=== PATIENT | male | born 1955 | race Caucasian/White ===

== ENCOUNTER 2019-03-23 19:28 | Emergency (ER) | payer OTHER ==
[2019-03-23 21:13] VITALS: TEMP 98.1; BMI 23.5
[2019-03-23] MEDS ORDERED: chlordiazePOXIDE HCL 25 MG CAPSULE PO ONE (22:32)
--- NOTE | 2019-03-23 22:33 | PDOC ---
History of Present Illness - General Chief Complaint: Hematuria Stated Complaint: BLOOD IN URINE Time Seen by Provider: 03/23/19 22:12 - History of Present Illness Initial Comments: 03/23/19 22:40 63 y/o M hx of alcohol abuse sent from [facility] for evaluation of hematuria. Pt. has had one day of hematuria. He denies any fevers,chills, dysuria,discharge , foul smelling urine, abdominal pain or flank pain, chest pain, shortness of breath. He endorses agitation, "and needing something to take the edge off". His last alcohol use was yesterday where he had 18 shots of vodka. He denies any drug use (heroin, cocaine,pills of any kind). 03/23/19 22:43 Past History - Past Medical History Allergies/Adverse Reactions: Allergies Allergy/AdvReac Type Severity Reaction Status Date / Time No Known Allergies Allergy Verified 03/23/19 21:14 Home Medications: Ambulatory Orders Gabapentin 600 mg PO TID 03/23/19 Ibuprofen 600 mg PO BID 03/23/19 Cephalexin [Keflex] 500 mg PO TID #15 capsule 03/24/19 - Suicide/Smoking/Psychosocial Hx Smoking History: Never smoked Have you smoked in the past 12 months: No Number of Cigarettes Smoked Daily: 20 Information on smoking cessation initiated: No 'Breaking Loose' booklet given: 03/23/19 Hx Alcohol Use: No Drug/Substance Use Hx: No Review of Systems - Review of Systems Constitutional: Yes: Chills. No: Fever HEENTM: No: Eye Pain, Blurred Vision Respiratory: No: Cough, Shortness of Breath Cardiac (ROS): No: Chest Pain, Chest Tightness ABD/GI: No: Abdominal Distended, Blood Streaked Bowels : No: Burning, Dysuria Musculoskeletal: No: Back Pain Neurological: Yes: Tremors. No: Numbness *Physical Exam - Vital Signs Last Vital Signs Temp Pulse Resp BP Pulse Ox 98.1 F 105 H 20 116/84 98 03/23/19 19:30 03/23/19 19:30 03/23/19 19:30 03/23/19 19:30 03/23/19 19:30 - Physical Exam General Appearance: Yes: Nourished, Disheveled HEENT: positive: EOMI, Normal Voice Neck: positive: Trachea midline, Supple Respiratory/Chest: positive: Wheezing. negative: Chest Tender, Respiratory Distress, Accessory Muscle Use, Labored Respiration, Crackles, Rales Cardiovascular: positive: Regular Rhythm, S1, S2. negative: Edema, JVD, Murmur Gastrointestinal/Abdominal: positive: Normal Bowel Sounds, Soft. negative: Distended, Guarding, Tenderness, Mass Musculoskeletal: positive: Normal Inspection. negative: CVA Tenderness Extremity: positive: Normal Inspection, Normal Range of Motion. negative: Calf Tenderness Integumentary: positive: Normal Color, Dry, Warm Neurologic: positive: Alert, Normal Response ED Treatment Course - LABORATORY CBC & Chemistry Diagram: 03/24/19 00:17 03/24/19 00:17 Medical Decision Making - Medical Decision Making 03/23/19 22:47 63 y/o M hx of alcohol abuse sent from [facility] for evaluation of hematuria. Labs/Imaging/Meds UA, urine culture, cbc,cmp Meds: Librium 50mg PO for agitation 03/24/19 03:50 Vitals at time of discharge BP: 120/70 HR: 98 03/24/19 03:53 EKG: ventricular paced rhythm *DC/Admit/Observation/Transfer Diagnosis at time of Disposition: Hematuria Qualifiers: Hematuria type: gross Qualified Code(s): R31.0 - Gross hematuria - Discharge Dispostion Condition at time of disposition: Fair - Prescriptions Prescriptions: Cephalexin [Keflex] 500 mg PO TID #15 capsule - Referrals Referrals: Lamont Ridley MD., MD [Staff Physician] - [facility] [place] [Provider Group] - Patient Instructions Printed Discharge Instructions: DI for Hematuria Additional Instructions: You were seen in the ED for blood in your urine. You were given antibiotics and discharged to [facility] with an antibiotic prescription. Take medication as instructed and directed. You had a large amount of blood in your urine, it is important to note that this is one of the signs seen in [facility]: YOUR CARE IS NOT COMPLETE UNTIL YOU FOLLOW UP WITH A UROLOGIST AND A PRIMARY CARE PROVIDER. INFORMATION FOR THESE PROVIDERS ARE INCLUDED IN YOUR DISCHARGE PAPER WORK. ED RETURN: return to the ER if you develop fevers, chills, burning with urination, difficulty urinating or increasing pain especially in your back that is not resolved with over the counter medications like tylenol. - Post Discharge Activity
[2019-03-23] MEDS ORDERED: chlordiazePOXIDE HCL 25 MG CAPSULE ONE (23:59)
[2019-03-24 00:44] LABS: BASO % 0.4 % (0-2.0); EOS % 1.2 % (0-4.5); HEMATOCRIT 43.1 % (35.4-49); HEMOGLOBIN 14.9 GM/dL (11.7-16.9); LYMPH % 33.1 % (8-40); MCH 32.7 pg (25.7-33.7); MCHC 34.5 g/dl (32.0-35.9); MEAN CELL VOLUME 94.8 fl (80-96); MEAN PLT VOLUME 7.7 fl (7.5-11.1); MONO % 14.9 % (3.8-10.2); NEUT % 50.4 % (42.8-82.8); PLATELET COUNT 167 K/MM3 (134-434); RBC 4.55 M/mm3 (4.00-5.60); RDW 15.1 % (11.9-15.9); WHITE BLOOD COUNT 7.5 K/mm3 (4.0-10.0)
[2019-03-24 01:12] LABS: ALBUMIN 3.9 g/dl (3.4-5.0); BILIRUBIN,TOTAL 1.3 mg/dL (0.2-1); BLOOD UREA NITROGEN 25.5 mg/dL (7-18); CREATININE 0.6 mg/dL (0.55-1.3); POTASSIUM 3.4 mmol/L (3.5-5.1); TOT PROT 7.7 g/dl (6.4-8.2)
[2019-03-24 01:25] LABS: EPI CELLS 0.3 /HPF (0-5/HPF); HYALINE CASTS 3 /lpf (0-8); URINE APPEARANCE TURBID; URINE BILIRUBIN 2+ (NEGATIVE); URINE COLOR RED; URINE GLUCOSE (UA) NEGATIVE (NEGATIVE); URINE KETONE NEGATIVE (NEGATIVE); URINE LEUK ESTERASE 3+ (NEGATIVE); URINE NITRITE POSITIVE (NEGATIVE); URINE PROTEIN 2+ (NEGATIVE); URINE RBC 141 /hpf (0-4); URINE UROBILINOGEN 0.2 mg/dL (0.2-1.0); URINE WBC 0 /hpf (0-5)
[2019-03-24 01:42] LABS: URINE BACTERIA FEW /hpf (NEGATIVE)
[2019-03-24] MEDS ORDERED: CEPHALEXIN MONOHYDRATE 500 MG CAPSULE (UD) PO ONE (02:18)
--- NOTE | 2019-03-24 02:24 | PDOC ---
Documentation entered by Shyanne hCoudhary SCRIBE, acting as scribe for Nancy Deng DO. Nancy Deng DO: This documentation has been prepared by the Kenrick nash Mackenzie, SCRIBE, under my direction and personally reviewed by me in its entirety. I confirm that the documentation accurately reflects all work, treatment, procedures, and medical decision making performed by me. Attending Attestation - Resident Resident Name: Lillie Escamilla - ED Attending Attestation I have performed the following: I have examined & evaluated the patient, The case was reviewed & discussed with the resident, I agree w/resident's findings & plan - HPI HPI: Patient is a 63 year old male with a significant PMH of EtOH abuse sent over from [facility] because his urine sample had blood in it. 03/23/19 23:21 - Physicial Exam PE: GENERAL: Awake, in no acute distress HEAD: No signs of trauma EYES: ENT:clear without exudates. Moist mucosa NECK: Normal ROM, LUNGS:. Normal work of breathing. HEART: Regular rate and rhythm, ABDOMEN: Soft, nondistended CHEST WALL: BACK: No midline tenderness. EXTREMITIES:. No erythema, or tenderness NEUROLOGICAL: Alert, SKIN: Warm, Dry 03/23/19 23:22 - Medical Decision Making 03/24/19 02:22 63-year-old male with hematuria found incidentally on urinalysis while in rehabilitation Keflex given 5 days due to no treated positive sample Patient given Librium 50 mg by mouth while in the emergency department was Keflex 500 mg Patient will be discharged back to rehabilitation and has been strongly urged to follow-up with urology for further evaluation
[2019-03-24] MEDS ORDERED: CEPHALEXIN MONOHYDRATE 500 MG CAPSULE (UD) ONE (03:14)
[2019-03-24 07:09] VITALS: BP 121/86; PULSE 95
== END 2019-03-24 07:00 ==
LOC: JER 19:28
DX: R31.0 Gross hematuria (principal)
CPT/HCPCS: 36415; 80053; 81003; 85025; 86850; 86900; 86901; 87086; 99283-25

== ENCOUNTER 2019-03-24 08:20 | Inpatient (IN) | payer OTHER ==
[2019-03-24 08:49] VITALS: BMI 26.6
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
[2019-03-24] MEDS ORDERED: METHOCARBAMOL 500 MG TABLET PO PRN (09:00)
[2019-03-24] MEDS ORDERED: chlordiazePOXIDE HCL 25 MG CAPSULE PO PRN (09:00)
[2019-03-24] MEDS ORDERED: MELATONIN 5 MG TABLETS PO PRN (09:00)
[2019-03-24] MEDS ORDERED: ACETAMINOPHEN 325 MG TABLET (FP) PO PRN ×2 (09:00)
[2019-03-24] MEDS ORDERED: MENTHOL/PHENOL 1 EACH UD MM PRN (09:00)
[2019-03-24] MEDS ORDERED: BISMUTH SUBSALICYLATE 262 MG/15 ML BTL PO PRN (09:00)
[2019-03-24] MEDS ORDERED: MAGNESIUM HYDROX 2400MG/30ML ORAL SUSPENSION 30 ML CUP PO PRN (09:00)
[2019-03-24] MEDS ORDERED: IBUPROFEN 400 MG TABLET (FP) PO PRN (09:00)
[2019-03-24] MEDS ORDERED: MAGNESIUM CITRATE 300 ML BOTTLE PO PRN (09:00)
[2019-03-24] MEDS ORDERED: MAG HYDROX/AL HYDROX/SIMETH 30 ML UNIT-DOSE CUP PO PRN (09:00)
[2019-03-24] MEDS: PRENATAL VITAMINS W/ FOLIC ACID TABLET (FP) PO SCH (10:31)
[2019-03-24] MEDS: chlordiazePOXIDE HCL 25 MG CAPSULE PO SCH ×3 (10:31→22:53)
--- NOTE | 2019-03-24 13:03 | EKG ---
Test Reason : Blood Pressure : / mmHG Vent. Rate : 098 BPM Atrial Rate : 098 BPM P-R Int : 144 ms QRS Dur : 090 ms QT Int : 372 ms P-R-T Axes : 059 047 057 degrees QTc Int : 474 ms NORMAL SINUS RHYTHM WITH SINUS ARRHYTHMIA NONSPECIFIC T WAVE ABNORMALITY PROLONGED QT ABNORMAL ECG NO PREVIOUS ECGS AVAILABLE Confirmed by KUSH ROBERSON MD ([id number]) on 03/24/2019 1:03:48 PM Referred By: Confirmed By:KUSH ROBERSON MD
[2019-03-24] MEDS: GABAPENTIN 300 MG CAPSULE (FP) PO SCH ×2 (15:06→22:53)
[2019-03-24] MEDS: CEPHALEXIN MONOHYDRATE 500 MG CAPSULE (UD) PO SCH ×2 (15:06→22:53)
--- NOTE | 2019-03-24 16:43 | PN ---
S CIWA - CIWA Score Nausea/Vomitin-Mild Nausea/No Vomiting Muscle Tremors: 3 Anxiety: 2 Agitation: 3 Paroxysmal Sweats: 2 Orientation: 0-Oriented Tacttile Disturbances: 0-None Auditory Disturbances: 0-None Visual Disturbances: 0-None Headache: 0-None Present CIWA-Ar Total Score: 11 BHS Progress Note (SOAP) Subjective: 63 years old male return from ER treated with hematuria by keflex reporting feeling better today less tremor ambulating from bed to bathroom independently Objective: 03/24/19 16:42 Vital Signs Temperature 99.5 F 03/24/19 13:45 Pulse Rate 111 H 03/24/19 13:45 Respiratory Rate 20 03/24/19 13:45 Blood Pressure 112/75 03/24/19 13:45 O2 Sat by Pulse Oximetry (%) 03/24/19 16:43 lab see 03/24/19 ER report uti treated with keflex Assessment: alcohol withdrawal sx alert oriented x 4 encourage change position slowly Plan: continue librium detox regimen continue keflex for uti
[2019-03-24] MEDS: THIAMINE HCL 100 MG TABLET (FP) PO SCH (22:53)
[2019-03-25] MEDS: CEPHALEXIN MONOHYDRATE 500 MG CAPSULE (UD) PO SCH ×3 (05:29→22:20)
[2019-03-25] MEDS: chlordiazePOXIDE HCL 25 MG CAPSULE PO SCH ×2 (05:29→10:16)
[2019-03-25] MEDS: GABAPENTIN 300 MG CAPSULE (FP) PO SCH ×3 (05:29→22:20)
[2019-03-25] MEDS: PRENATAL VITAMINS W/ FOLIC ACID TABLET (FP) PO SCH (10:15)
[2019-03-25] MEDS: hydrOXYzine HCL 25 MG TABLET (FP) PO PRN ×2 (10:16→22:22)
[2019-03-25 10:57] LABS: HEMATOCRIT 43.6 % (35.4-49); MCH 32.9 pg (25.7-33.7); MCHC 34.5 g/dl (32.0-35.9); MEAN CELL VOLUME 95.4 fl (80-96); MEAN PLT VOLUME 7.8 fl (7.5-11.1); PLATELET COUNT 165 K/MM3 (134-434); RBC 4.57 M/mm3 (4.00-5.60); RDW 15.3 % (11.9-15.9)
[2019-03-25 11:12] LABS: ALBUMIN 3.7 g/dl (3.4-5.0); BILIRUBIN,TOTAL 1.4 mg/dL (0.2-1); CREATININE 0.7 mg/dL (0.55-1.3); TOT PROT 7.6 g/dl (6.4-8.2)
[2019-03-25 11:16] LABS: POTASSIUM 2.9 mmol/L (3.5-5.1)
[2019-03-25] MEDS: NICOTINE 21 MG/24 HOURS TOPICAL PATCH TD SCH (11:21)
[2019-03-25] MEDS ORDERED: POTASSIUM CHLORIDE TABS 20 MEQ TABLET.ER (FP) PO ONE (11:33)
[2019-03-25] MEDS ORDERED: LORazepam 1 MG TABLET PO PRN (11:54)
--- NOTE | 2019-03-25 11:56 | PN ---
[facility] CIWA - CIWA Score Nausea/Vomitin-Mild Nausea/No Vomiting Muscle Tremors: 4-Moderate,w/Arms Extend Anxiety: 3 Agitation: 1-Slight > Activity Paroxysmal Sweats: 2 Orientation: 2-Disoriented Date<2 days Tacttile Disturbances: 1-Very Mild Itch/Numbness Auditory Disturbances: 0-None Visual Disturbances: 0-None Headache: 0-None Present CIWA-Ar Total Score: 14 S Progress Note (SOAP) Subjective: Tremors, Anxious, Sweating. Objective: PATIENT A & O X 2 (UNCERTAIN ABOUT CURRENT DAY / DATE). PATIENT OBSERVED AMBULATING ON UNIT WITH ASSISTANCE OF A WALKER. IN NO ACUTE DISTRESS. 03/25/19 11:57 Vital Signs Temperature 98.3 F 03/25/19 09:13 Pulse Rate 137 H 03/25/19 09:13 Respiratory Rate 20 03/25/19 09:13 Blood Pressure 106/69 03/25/19 09:13 O2 Sat by Pulse Oximetry (%) Laboratory Tests 03/25/19 03/25/19 03/25/19 07:30 07:30 07:30 WBC 6.0 RBC 4.57 Hgb 15.0 Hct 43.6 MCV 95.4 MCH 32.9 MCHC 34.5 RDW 15.3 Plt Count 165 MPV 7.8 Sodium 140 Potassium 2.9 L* Chloride 98 Carbon Dioxide 33 H Anion Gap 9 BUN 19.0 H Creatinine 0.7 Est GFR (CKD-EPI)AfAm 115.59 Est GFR (CKD-EPI)NonAf 99.73 Random Glucose 91 Calcium 9.0 Total Bilirubin 1.4 H AST 176 H ALT 125 H Alkaline Phosphatase 80 Total Protein 7.6 Albumin 3.7 RPR Titer Nonreactive LABS NOTED. Assessment: 03/25/19 11:58 WITHDRAWAL SYMPTOMS. HYPOKALEMIA. ELEVATED AST LEVEL. ELEVATED ALT LEVEL. 03/25/19 11:58 Plan: CONTINUE DETOX. INCREASE DAILY PO WATER INTAKE. K-DUR, 20 MEQ PO BID FOR LOW POTASSIUM LEVEL NOTED ON DETOX ADMISSION LABORATORY ASSESSMENT. RE-CHECK POTASSIUM LEVEL ON 03/27/2019 FOR EFFECT. ALT AND AST LEVELS CHECKED YESTERDAY WHILE PATIENT WAS SEEN AT [facility] ER. AST AND ALT LEVELS CHECKED AGAIN EARLIER THIS AM; BOTH LEVELS INCREASED SINCE YESTERDAY. WILL CHANGE PATIENT FROM LIBRIUM DETOX MEDICATION REGIMEN TO ATIVAN DETOX MEDICATION REGIMEN. WILL CHECK HEPATIC FUNCTION PANEL ON 03/25/2019 TO SEE IF ANY REDUCTION IN AST AND ALT LEVELS.
[2019-03-25] MEDS: ONDANSETRON *ODT* 4 MG TABLET SL PRN (13:33)
[2019-03-25 15:36] LABS: URINE APPEARANCE TURBID; URINE BILIRUBIN 1+ (NEGATIVE); URINE COLOR RED; URINE GLUCOSE (UA) NEGATIVE (NEGATIVE); URINE KETONE NEGATIVE (NEGATIVE); URINE LEUK ESTERASE 3+ (NEGATIVE); URINE NITRITE POSITIVE (NEGATIVE); URINE PROTEIN 3+ (NEGATIVE); URINE UROBILINOGEN 0.2 mg/dL (0.2-1.0)
[2019-03-25] MEDS: POTASSIUM CHLORIDE TABS 20 MEQ TABLET.ER (FP) PO SCH (17:54)
[2019-03-25] MEDS: LORazepam 2 MG TABLET PO SCH ×2 (17:54→22:20)
[2019-03-25] MEDS: PROCHLORPERAZINE MALEATE 5 MG TABLET PO PRN (17:55)
[2019-03-25] MEDS: THIAMINE HCL 100 MG TABLET (FP) PO SCH (22:20)
[2019-03-26] MEDS ORDERED: chlordiazePOXIDE HCL 25 MG CAPSULE PO SCH (05:00)
[2019-03-26] MEDS: LORazepam 2 MG TABLET PO SCH ×4 (06:48→22:20)
[2019-03-26] MEDS: GABAPENTIN 300 MG CAPSULE (FP) PO SCH ×3 (06:48→21:47)
[2019-03-26] MEDS: CEPHALEXIN MONOHYDRATE 500 MG CAPSULE (UD) PO SCH ×3 (06:48→21:47)
[2019-03-26] MEDS: ONDANSETRON *ODT* 4 MG TABLET SL PRN ×2 (08:05→17:34)
[2019-03-26] MEDS: POTASSIUM CHLORIDE TABS 20 MEQ TABLET.ER (FP) PO SCH ×2 (10:25→17:34)
[2019-03-26] MEDS: PRENATAL VITAMINS W/ FOLIC ACID TABLET (FP) PO SCH (10:25)
[2019-03-26] MEDS: NICOTINE 21 MG/24 HOURS TOPICAL PATCH TD SCH (10:26)
[2019-03-26] MEDS ORDERED: LORazepam 0.5 MG TABLET PO PRN (11:55)
[2019-03-26] MEDS: PROCHLORPERAZINE MALEATE 5 MG TABLET PO PRN (12:53)
--- NOTE | 2019-03-26 13:17 | PN ---
S CIWA - CIWA Score Nausea/Vomitin Muscle Tremors: 3 Anxiety: 4-Mod. Anxious/Guarded Agitation: 2 Paroxysmal Sweats: No Perspiration Orientation: 0-Oriented Tacttile Disturbances: 0-None Auditory Disturbances: 0-None Visual Disturbances: 0-None Headache: 0-None Present CIWA-Ar Total Score: 14 BHS Progress Note (SOAP) Subjective: Anxious, Tremors, Vomiting. Objective: PATIENT A & O X 3, OBSERVED AMBULATING ON UNIT WITH ASSISTANCE OF A WALKER. IN NO ACUTE DISTRESS. 03/26/19 13:15 Vital Signs Temperature 97.3 F L 03/26/19 09:49 Pulse Rate 103 H 03/26/19 09:49 Respiratory Rate 18 03/26/19 09:49 Blood Pressure 91/63 03/26/19 09:49 O2 Sat by Pulse Oximetry (%) Laboratory Tests 03/25/19 03/25/19 03/25/19 07:30 07:30 07:30 WBC 6.0 RBC 4.57 Hgb 15.0 Hct 43.6 MCV 95.4 MCH 32.9 MCHC 34.5 RDW 15.3 Plt Count 165 MPV 7.8 Sodium 140 Potassium 2.9 L* Chloride 98 Carbon Dioxide 33 H Anion Gap 9 BUN 19.0 H Creatinine 0.7 Est GFR (CKD-EPI)AfAm 115.59 Est GFR (CKD-EPI)NonAf 99.73 Random Glucose 91 Calcium 9.0 Total Bilirubin 1.4 H AST 176 H ALT 125 H Alkaline Phosphatase 80 Total Protein 7.6 Albumin 3.7 Urine Color Urine Appearance Urine pH Ur Specific [place] Urine Protein Urine Glucose (UA) Urine Ketones Urine Blood Urine Nitrite Urine Bilirubin Urine Urobilinogen Ur Leukocyte Esterase RPR Titer Nonreactive 03/25/19 07:30 WBC RBC Hgb Hct MCV MCH MCHC RDW Plt Count MPV Sodium Potassium Chloride Carbon Dioxide Anion Gap BUN Creatinine Est GFR (CKD-EPI)AfAm Est GFR (CKD-EPI)NonAf Random Glucose Calcium Total Bilirubin AST ALT Alkaline Phosphatase Total Protein Albumin Urine Color Red Urine Appearance Turbid Urine pH 7.0 Ur Specific [place] 1.004 L Urine Protein 3+ H Urine Glucose (UA) Negative Urine Ketones Negative Urine Blood 3+ H Urine Nitrite Positive H Urine Bilirubin 1+ H Urine Urobilinogen 0.2 Ur Leukocyte Esterase 3+ H RPR Titer LABS NOTED. RESULTS OF UA NOTED. PATIENT CURRENTLY BEING TREATED FOR UTI, PO KEFLEX STARTED WHILE PATIENT WAS SEEN AT [facility] JUST PRIOR TO ADMISSION TO DETOX. HEMATURIA NOTED ON DETOX ADMISSION UA. PATIENT WAS EVALUATED FOR THAT AT [facility], WELL. 03/26/19 13:16 Assessment: 03/26/19 13:17 WITHDRAWAL SYMPTOMS. ELEVATED AST AND ALT LEVELS. HYPERBILIRUBINEMIA. HYPOKALEMIA. URINARY TRACT INFECTION. HEMATURIA. 03/26/19 13:18 Plan: CONTINUE DETOX. INCREASE DAILY PO WATER INTAKE. REPEAT UA TO SEE IF ANY CHANGE FROM ADMISSION UA ABNORMALITIES. HEPATIC FUNCTIONAL ORDERED FOR TOMORROW AM TO SEE IF ANY CHANGE IN AST, ALT AND IN TOTAL BILIRUBIN LEVELS FROM DETOX ADMISSION. CONTINUE K-DUR PO. REPEAT POTASSIUM LEVEL ORDERED FOR TOMORROW AM TO SEE IF ANY CHANGE IN POTASSIUM LEVEL SINCE POTASSIUM LEVEL AT TIME OF DETOX ADMISSION. PRN TIGAN IM ORDERED FOR NAUSEA / VOMITING (PATIENT REQUESTS).
[2019-03-26] MEDS: TRIMETHOBENZAMIDE HCL 200MG/2ML INJ IM PRN (21:43)
[2019-03-26] MEDS: THIAMINE HCL 100 MG TABLET (FP) PO SCH (21:47)
[2019-03-27] MEDS ORDERED: chlordiazePOXIDE HCL 10 MG CAPSULE PO PRN
[2019-03-27] MEDS ORDERED: chlordiazePOXIDE HCL 10 MG CAPSULE PO SCH (05:00)
[2019-03-27] MEDS: LORazepam 1 MG TABLET PO SCH ×4 (06:45→22:42)
[2019-03-27] MEDS: GABAPENTIN 300 MG CAPSULE (FP) PO SCH ×3 (06:46→22:42)
[2019-03-27] MEDS: CEPHALEXIN MONOHYDRATE 500 MG CAPSULE (UD) PO SCH ×3 (06:46→22:42)
[2019-03-27] MEDS: TRIMETHOBENZAMIDE HCL 200MG/2ML INJ IM PRN (06:48)
[2019-03-27 10:22] LABS: ALBUMIN 3.4 g/dl (3.4-5.0); BILIRUBIN,DIRECT 0.4 mg/dL (0.0-0.2); BILIRUBIN,TOTAL 0.9 mg/dL (0.2-1); POTASSIUM 3.9 mmol/L (3.5-5.1)
--- NOTE | 2019-03-27 10:36 | PN ---
[facility] CIWA - CIWA Score Nausea/Vomitin Muscle Tremors: 1-None Visible, but [place] Anxiety: 2 Agitation: 2 Paroxysmal Sweats: 2 Orientation: 0-Oriented Tacttile Disturbances: 0-None Auditory Disturbances: 0-None Visual Disturbances: 0-None Headache: 0-None Present CIWA-Ar Total Score: 9 S Progress Note (SOAP) Subjective: 63 years old male admitted on 03/24/19 for acute alcohol withdrawal sx management doing well with ativan detox regimen had regular bowel movement "yesterday" ambulating with walker steady gait denies dizziness report vomited x 1 after took a bite of bagel tigan 200 mg IM x 1 around 7 am bp within previous range no periorbital edema denies headache no ankle edema no shortness of breath Objective: 03/27/19 10:38 Vital Signs Temperature 99.1 F 03/27/19 09:34 Pulse Rate 102 H 03/27/19 09:34 Respiratory Rate 19 03/27/19 09:34 Blood Pressure 97/68 03/27/19 09:34 O2 Sat by Pulse Oximetry (%) Laboratory Last Values WBC 6.0 K/mm3 (4.0-10.0) 03/25/19 07:30 RBC 4.57 M/mm3 (4.00-5.60) 03/25/19 07:30 Hgb 15.0 GM/dL (11.7-16.9) 03/25/19 07:30 Hct 43.6 % (35.4-49) 03/25/19 07:30 MCV 95.4 fl (80-96) 03/25/19 07:30 MCH 32.9 pg (25.7-33.7) 03/25/19 07:30 MCHC 34.5 g/dl (32.0-35.9) 03/25/19 07:30 RDW 15.3 % (11.9-15.9) 03/25/19 07:30 Plt Count 165 K/MM3 (134-434) 03/25/19 07:30 MPV 7.8 fl (7.5-11.1) 03/25/19 07:30 Sodium 140 mmol/L (136-145) 03/25/19 07:30 Potassium 3.9 mmol/L (3.5-5.1) 03/27/19 08:00 Chloride 98 mmol/L (98-107) 03/25/19 07:30 Carbon Dioxide 33 mmol/L (21-32) H 03/25/19 07:30 Anion Gap 9 MMOL/L (8-16) 03/25/19 07:30 BUN 19.0 mg/dL (7-18) H 03/25/19 07:30 Creatinine 0.7 mg/dL (0.55-1.3) 03/25/19 07:30 Est GFR (CKD-EPI)AfAm 115.59 03/25/19 07:30 Est GFR (CKD-EPI)NonAf 99.73 03/25/19 07:30 Random Glucose 91 mg/dL (74-106) 03/25/19 07:30 Calcium 9.0 mg/dL (8.5-10.1) 03/25/19 07:30 Total Bilirubin 0.9 mg/dL (0.2-1) 03/27/19 08:00 Direct Bilirubin 0.4 mg/dL (0.0-0.2) H 03/27/19 08:00 AST 152 U/L (15-37) H 03/27/19 08:00 ALT 138 U/L (13-61) H 03/27/19 08:00 Alkaline Phosphatase 71 U/L (45-117) 03/27/19 08:00 Total Protein 7.0 g/dl (6.4-8.2) 03/27/19 08:00 Albumin 3.4 g/dl (3.4-5.0) 03/27/19 08:00 Urine Color Red 03/25/19 07:30 Urine Appearance Turbid 03/25/19 07:30 Urine pH 7.0 (5.0-8.0) 03/25/19 07:30 Ur Specific [place] 1.004 (1.010-1.035) L 03/25/19 07:30 Urine Protein 3+ (NEGATIVE) H 03/25/19 07:30 Urine Glucose (UA) Negative (NEGATIVE) 03/25/19 07:30 Urine Ketones Negative (NEGATIVE) 03/25/19 07:30 Urine Blood 3+ (NEGATIVE) H 03/25/19 07:30 Urine Nitrite Positive (NEGATIVE) H 03/25/19 07:30 Urine Bilirubin 1+ (NEGATIVE) H 03/25/19 07:30 Urine Urobilinogen 0.2 mg/dL (0.2-1.0) 03/25/19 07:30 Ur Leukocyte Esterase 3+ (NEGATIVE) H 03/25/19 07:30 RPR Titer Nonreactive (NONREACTIVE) 03/25/19 07:30 lab noted hematuria uti 03/27/19 10:39 continue cepalexin discontinue K+ supplement 03/27/19 10:40 Assessment: 03/27/19 10:40 alcohol withdrawal sx Plan: continue ativan detox
[2019-03-27] MEDS: PRENATAL VITAMINS W/ FOLIC ACID TABLET (FP) PO SCH (10:40)
[2019-03-27] MEDS: NICOTINE 21 MG/24 HOURS TOPICAL PATCH TD SCH (10:41)
[2019-03-27] MEDS: POTASSIUM CHLORIDE TABS 20 MEQ TABLET.ER (FP) PO SCH (10:42)
[2019-03-27] MEDS: THIAMINE HCL 100 MG TABLET (FP) PO SCH (22:42)
[2019-03-28] MEDS ORDERED: chlordiazePOXIDE HCL 10 MG CAPSULE PO SCH (05:00)
[2019-03-28] MEDS: CEPHALEXIN MONOHYDRATE 500 MG CAPSULE (UD) PO SCH ×3 (06:05→22:49)
[2019-03-28] MEDS: GABAPENTIN 300 MG CAPSULE (FP) PO SCH ×3 (06:05→22:49)
[2019-03-28] MEDS: LORazepam 0.5 MG TABLET PO SCH ×4 (06:06→22:55)
[2019-03-28] MEDS: ONDANSETRON *ODT* 4 MG TABLET SL PRN (10:17)
[2019-03-28] MEDS: NICOTINE 21 MG/24 HOURS TOPICAL PATCH TD SCH (10:19)
[2019-03-28] MEDS: PRENATAL VITAMINS W/ FOLIC ACID TABLET (FP) PO SCH (10:19)
[2019-03-28 12:26] LABS: EPI CELLS 6.2 /HPF (0-5/HPF); HYALINE CASTS 3 /lpf (0-8); URINE APPEARANCE TURBID; URINE BACTERIA 0.8 /hpf (NEGATIVE); URINE BILIRUBIN 1+ (NEGATIVE); URINE COLOR DK YELLOW; URINE GLUCOSE (UA) NEGATIVE (NEGATIVE); URINE KETONE TRACE (NEGATIVE); URINE LEUK ESTERASE 1+ (NEGATIVE); URINE NITRITE NEGATIVE (NEGATIVE); URINE PROTEIN 2+ (NEGATIVE); URINE RBC 2468 /hpf (0-4); URINE WBC 6 /hpf (0-5)
--- NOTE | 2019-03-28 15:05 | PN ---
S CIWA - CIWA Score Nausea/Vomitin-No Nausea/No Vomiting Muscle Tremors: 2 Anxiety: 3 Agitation: 0-Normal Activity Paroxysmal Sweats: No Perspiration Orientation: 2-Disoriented Date<2 days Tacttile Disturbances: 1-Very Mild Itch/Numbness Auditory Disturbances: 0-None Visual Disturbances: 0-None Headache: 0-None Present CIWA-Ar Total Score: 8 BHS Progress Note (SOAP) Subjective: Anxious, Tremors. Objective: PATIENT A & O X 2 (UNCERTAIN ABOUT CURRENT DAY / DATE). IN NO ACUTE DISTRESS. 03/28/19 14:58 Vital Signs Temperature 97.4 F L 03/28/19 13:28 Pulse Rate 96 H 03/28/19 13:28 Respiratory Rate 16 03/28/19 13:28 Blood Pressure 102/70 03/28/19 13:28 O2 Sat by Pulse Oximetry (%) Laboratory Tests 03/25/19 03/25/19 03/25/19 07:30 07:30 07:30 WBC 6.0 RBC 4.57 Hgb 15.0 Hct 43.6 MCV 95.4 MCH 32.9 MCHC 34.5 RDW 15.3 Plt Count 165 MPV 7.8 Sodium 140 Potassium 2.9 L* Chloride 98 Carbon Dioxide 33 H Anion Gap 9 BUN 19.0 H Creatinine 0.7 Est GFR (CKD-EPI)AfAm 115.59 Est GFR (CKD-EPI)NonAf 99.73 Random Glucose 91 Calcium 9.0 Total Bilirubin 1.4 H Direct Bilirubin AST 176 H ALT 125 H Alkaline Phosphatase 80 Total Protein 7.6 Albumin 3.7 Urine Color Urine Appearance Urine pH Ur Specific [place] Urine Protein Urine Glucose (UA) Urine Ketones Urine Blood Urine Nitrite Urine Bilirubin Urine Urobilinogen Ur Leukocyte Esterase Urine WBC (Auto) Urine RBC (Auto) Urine Casts (Auto) U Epithel Cells (Auto) Urine Bacteria (Auto) RPR Titer Nonreactive 03/25/19 03/27/19 03/27/19 07:30 08:00 08:00 WBC RBC Hgb Hct MCV MCH MCHC RDW Plt Count MPV Sodium Potassium 3.9 Chloride Carbon Dioxide Anion Gap BUN Creatinine Est GFR (CKD-EPI)AfAm Est GFR (CKD-EPI)NonAf Random Glucose Calcium Total Bilirubin 0.9 Cancelled Direct Bilirubin 0.4 H Cancelled AST 152 H Cancelled ALT 138 H Cancelled Alkaline Phosphatase 71 Cancelled Total Protein 7.0 Cancelled Albumin 3.4 Cancelled Urine Color Red Urine Appearance Turbid Urine pH 7.0 Ur Specific [place] 1.004 L Urine Protein 3+ H Urine Glucose (UA) Negative Urine Ketones Negative Urine Blood 3+ H Urine Nitrite Positive H Urine Bilirubin 1+ H Urine Urobilinogen 0.2 Ur Leukocyte Esterase 3+ H Urine WBC (Auto) Urine RBC (Auto) Urine Casts (Auto) U Epithel Cells (Auto) Urine Bacteria (Auto) RPR Titer 03/28/19 08:20 WBC RBC Hgb Hct MCV MCH MCHC RDW Plt Count MPV Sodium Potassium Chloride Carbon Dioxide Anion Gap BUN Creatinine Est GFR (CKD-EPI)AfAm Est GFR (CKD-EPI)NonAf Random Glucose Calcium Total Bilirubin Direct Bilirubin AST ALT Alkaline Phosphatase Total Protein Albumin Urine Color Dk yellow Urine Appearance Turbid Urine pH 7.0 Ur Specific [place] 1.024 Urine Protein 2+ H Urine Glucose (UA) Negative Urine Ketones Trace H Urine Blood 3+ H Urine Nitrite Negative Urine Bilirubin 1+ H Urine Urobilinogen 1.0 Ur Leukocyte Esterase 1+ H Urine WBC (Auto) 6 Urine RBC (Auto) 2468 Urine Casts (Auto) 3 U Epithel Cells (Auto) 6.2 Urine Bacteria (Auto) 0.8 RPR Titer LABS NOTED. RESULTS OF REPEAT UA NOTED. PATIENT REPORTS "REDDISH" COLOR TO URINE. PATIENT WAS PREVIOUSLY EVALUATED AT [facility] ER JUST PRIOR TO ADMISSION TO DETOX. ASIDE FROM THAT, PATIENT DENIES ANY UNUSUAL URINARY COMPLAINTS (BURNING, PAIN, FREQUENCY, URGENCY , HESITANCY). Assessment: 03/28/19 15:00 WITHDRAWAL SYMPTOMS. HEMATURIA. Plan: CONTINUE DETOX. INCREASE DAILY PO WATER INTAKE. PATIENT AGAIN STRONGLY ADVISED TO FOLLOW-UP WITH [employer] (PATIENT NOTES THAT CURRENTLY HAS ONE, BUT IS UNABLE TO RECALL NAME AT THIS TIME) AFTER DISCHARGE FROM DETOX FOR GENERAL MEDICAL ASSESSMENT AND FOR ABNORMALITIES, INCLUDING HEMATURIA, NOTED ON ADMISSION AND REPEAT UA'S. PATIENT VERBALIZED UNDERSTANDING OF RECOMMENDATION. COPIES OF RESULTS OF ALL LABS DRAWN WHILE ADMITTED FOR DETOX GIVEN TO PATIENT AT TIME OF DISCHARGE FROM DETOX UNIT. PATIENT SCHEDULED FOR D/C FROM DETOX TOMORROW.
[2019-03-28] MEDS: THIAMINE HCL 100 MG TABLET (FP) PO SCH (22:49)
[2019-03-29] MEDS ORDERED: chlordiazePOXIDE HCL 10 MG CAPSULE PO ONE (05:00)
[2019-03-29] MEDS ORDERED: LORazepam 0.5 MG TABLET PO ONE (05:00)
[2019-03-29] MEDS: CEPHALEXIN MONOHYDRATE 500 MG CAPSULE (UD) PO SCH (05:47)
[2019-03-29] MEDS: GABAPENTIN 300 MG CAPSULE (FP) PO SCH ×3 (05:47→21:30)
[2019-03-29] MEDS: PRENATAL VITAMINS W/ FOLIC ACID TABLET (FP) PO SCH (11:35)
[2019-03-29] MEDS: NICOTINE 21 MG/24 HOURS TOPICAL PATCH TD SCH (11:35)
[2019-03-29] MEDS: TRIMETHOBENZAMIDE HCL 200MG/2ML INJ IM PRN (12:21)
--- NOTE | 2019-03-29 15:40 | PN ---
S CIWA - CIWA Score Nausea/Vomitin Muscle Tremors: 1-None Visible, but [place] Anxiety: 3 Agitation: 3 Paroxysmal Sweats: No Perspiration Orientation: 0-Oriented Tacttile Disturbances: 1-Very Mild Itch/Numbness Auditory Disturbances: 0-None Visual Disturbances: 0-None Headache: 2-Mild CIWA-Ar Total Score: 12 BHS Progress Note (SOAP) Subjective: patient feel weak,productive couhing,unsteady gait,history of nicotine dependence,use walker for ambulatory aid, history of fall frequent,history of hematuria Objective: 03/29/19 15:41 Vital Signs Temperature 98.2 F 03/29/19 13:08 Pulse Rate 95 H 03/29/19 13:08 Respiratory Rate 16 03/29/19 13:08 Blood Pressure 108/69 03/29/19 13:08 O2 Sat by Pulse Oximetry (%) Assessment: 03/29/19 15:42 withdrawal symptom productive coughing with yellowish mucous lung no wheezing possible bronchitis Plan: zithromax 500mgs po now then 250mgs po daily for 3 days for acute bronchitic, continue monitor for 24 hrs possible discharge in am
[2019-03-29] MEDS ORDERED: guaiFENesin 200 MG/10 ML 10 ML UNIT-DOSE CUPS PO PRN (15:51)
[2019-03-29] MEDS ORDERED: AZITHROMYCIN 250 MG TABLET PO ONE (16:45)
[2019-03-29] MEDS: RANITIDINE HCL 150 MG TABLET (FP) PO SCH ×2 (17:08→21:30)
[2019-03-29] MEDS: THIAMINE HCL 100 MG TABLET (FP) PO SCH (21:30)
[2019-03-30] MEDS: GABAPENTIN 300 MG CAPSULE (FP) PO SCH ×2 (07:39→14:41)
[2019-03-30] MEDS ORDERED: AZITHROMYCIN 250 MG TABLET PO SCH (10:00)
[2019-03-30] MEDS: RANITIDINE HCL 150 MG TABLET (FP) PO SCH (10:33)
[2019-03-30] MEDS: NICOTINE 21 MG/24 HOURS TOPICAL PATCH TD SCH (10:33)
[2019-03-30] MEDS: PRENATAL VITAMINS W/ FOLIC ACID TABLET (FP) PO SCH (10:33)
[2019-03-30 13:11] VITALS: BP 99/64; PULSE 85; TEMP 96.8
--- NOTE | 2019-03-30 15:57 | DS ---
[facility] Detox Discharge Summary Admission Date: 03/24/19 Discharge Date: 03/30/19 - History Present History: Alcohol Dependence Additional Comments: 63 years old male admitted on 03/24/19 for acute alcohol withdrawal sx management doing well with librium detox regimen no complication through out the detox stay but chronic vomiting treated with tigan IM with good result good skin turgur moist oral mucosa - Physical Exam Results Vital Signs: Vital Signs Temperature 96.8 F L 03/30/19 13:11 Pulse Rate 85 03/30/19 13:11 Respiratory Rate 18 03/30/19 13:11 Blood Pressure 99/64 03/30/19 13:11 O2 Sat by Pulse Oximetry (%) Pertinent Admission Physical Exam Findings: alcohol withdrawal sx Laboratory Last Values WBC 6.0 K/mm3 (4.0-10.0) 03/25/19 07:30 RBC 4.57 M/mm3 (4.00-5.60) 03/25/19 07:30 Hgb 15.0 GM/dL (11.7-16.9) 03/25/19 07:30 Hct 43.6 % (35.4-49) 03/25/19 07:30 MCV 95.4 fl (80-96) 03/25/19 07:30 MCH 32.9 pg (25.7-33.7) 03/25/19 07:30 MCHC 34.5 g/dl (32.0-35.9) 03/25/19 07:30 RDW 15.3 % (11.9-15.9) 03/25/19 07:30 Plt Count 165 K/MM3 (134-434) 03/25/19 07:30 MPV 7.8 fl (7.5-11.1) 03/25/19 07:30 Sodium 140 mmol/L (136-145) 03/25/19 07:30 Potassium 3.9 mmol/L (3.5-5.1) 03/27/19 08:00 Chloride 98 mmol/L (98-107) 03/25/19 07:30 Carbon Dioxide 33 mmol/L (21-32) H 03/25/19 07:30 Anion Gap 9 MMOL/L (8-16) 03/25/19 07:30 BUN 19.0 mg/dL (7-18) H 03/25/19 07:30 Creatinine 0.7 mg/dL (0.55-1.3) 03/25/19 07:30 Est GFR (CKD-EPI)AfAm 115.59 03/25/19 07:30 Est GFR (CKD-EPI)NonAf 99.73 03/25/19 07:30 Random Glucose 91 mg/dL (74-106) 03/25/19 07:30 Calcium 9.0 mg/dL (8.5-10.1) 03/25/19 07:30 Total Bilirubin 0.9 mg/dL (0.2-1) 03/27/19 08:00 Direct Bilirubin 0.4 mg/dL (0.0-0.2) H 03/27/19 08:00 AST 152 U/L (15-37) H 03/27/19 08:00 ALT 138 U/L (13-61) H 03/27/19 08:00 Alkaline Phosphatase 71 U/L (45-117) 03/27/19 08:00 Total Protein 7.0 g/dl (6.4-8.2) 03/27/19 08:00 Albumin 3.4 g/dl (3.4-5.0) 03/27/19 08:00 Urine Color Dk yellow 03/28/19 08:20 Urine Appearance Turbid 03/28/19 08:20 Urine pH 7.0 (5.0-8.0) 03/28/19 08:20 Ur Specific [place] 1.024 (1.010-1.035) 03/28/19 08:20 Urine Protein 2+ (NEGATIVE) H 03/28/19 08:20 Urine Glucose (UA) Negative (NEGATIVE) 03/28/19 08:20 Urine Ketones Trace (NEGATIVE) H 03/28/19 08:20 Urine Blood 3+ (NEGATIVE) H 03/28/19 08:20 Urine Nitrite Negative (NEGATIVE) 03/28/19 08:20 Urine Bilirubin 1+ (NEGATIVE) H 03/28/19 08:20 Urine Urobilinogen 1.0 mg/dL (0.2-1.0) 03/28/19 08:20 Ur Leukocyte Esterase 1+ (NEGATIVE) H 03/28/19 08:20 Urine WBC (Auto) 6 /hpf (0-5) 03/28/19 08:20 Urine RBC (Auto) 2468 /hpf (0-4) 03/28/19 08:20 Urine Casts (Auto) 3 /lpf (0-8) 03/28/19 08:20 U Epithel Cells (Auto) 6.2 /HPF (0-5/HPF) 03/28/19 08:20 Urine Bacteria (Auto) 0.8 /hpf (NEGATIVE) 03/28/19 08:20 RPR Titer Nonreactive (NONREACTIVE) 03/25/19 07:30 TB (QFT) Incubation (.) 03/25/19 07:30 TB Test (QFT) Nil 0.04 IU/mL (.) 03/25/19 07:30 TB Test (QFT) Mitogen 5.58 IU/mL (.) 03/25/19 07:30 TB Test (QFT) Antigen 0.05 IU/mL (.) 03/25/19 07:30 TB Test (QFT) Negative (Negative) 03/25/19 07:30 TB Positive Criteria (.) 03/25/19 07:30 lab noted - Treatment Hospital Course: Detox Protocol Followed, Detoxed Safely, Responded well, Discharged Condition Good, Rehab Referral Accepted Patient has Accepted [facility] Ref[facility] - Medication Discharge Medications: Ambulatory Orders Gabapentin 600 mg PO TID 03/23/19 Ibuprofen 800 mg PO TID 03/23/19 Cephalexin [Keflex] 500 mg PO TID #15 capsule 03/24/19 - Diagnosis (1) Alcohol dependence with uncomplicated withdrawal Status: Acute (2) Walker as ambulation aid Status: Chronic (3) Hematuria Status: Acute Qualifiers: Hematuria type: asymptomatic microscopic Qualified Code(s): R31.21 - Asymptomatic microscopic hematuria - AMA Did Patient Leave Against Medical Advice: No
== END 2019-03-30 14:44 | disposition other institution (70) | DRG 897 ==
LOC: YASAS 08:20 → UNDOADMIN 08:24 → Y3N 08:24 → J8W 03-28 17:06 → Y3N 03-28 17:06
PROVIDERS: ADMIT Surgery; ATTEND Surgery
PROC: HZ2ZZZZ Detoxification Services for Substance Abuse Treatment (ICD-10-PCS; principal; 2019-03-24)
DX: F10.230 Alcohol dependence with withdrawal, uncomplicated (principal); N39.0 Urinary tract infection, site not specified; F17.210 Nicotine dependence, cigarettes, uncomplicated; R31.21 Asymptomatic microscopic hematuria; J20.9 Acute bronchitis, unspecified; R74.0 Nonspecific elevation of levels of transaminase and lactic acid dehydrogenase [LDH]; E80.6 Other disorders of bilirubin metabolism; E87.6 Hypokalemia; E86.0 Dehydration; M25.561 Pain in right knee; M25.562 Pain in left knee; G89.29 Other chronic pain; R26.2 Difficulty in walking, not elsewhere classified; Z99.89 Dependence on other enabling machines and devices
CPT/HCPCS: 36415; 80053; 80076; 81003; 84132; 85027; 86480; 86593; 93005; 93010; Q0162

== ENCOUNTER 2019-03-30 14:50 | Inpatient (IN) | payer OTHER ==
--- NOTE | 2019-03-30 16:04 | HP ---
[facility] Rehab Assess/Revision - Admission History Admitted to Rehab from: [facility] Date of Admission to Rehab: 03/30/19 - Vital signs Vital Signs: Vital Signs Period Temp Pulse Resp BP Sys/Zuniga Pulse Ox Last 24 Hr 98.6 F 94 16 94/51 - Findings Detox History & Physical reviewed: Yes Concur with findings: Yes Comments/Additional Findings: transferred from detox to rehab admission as per protocol Inpatient Rehab Admission - Rehab Decision to Admit Inpatient rehab admission?: Yes - Initial Determination Are CD services needed?: Yes Free of communicable disease: Yes Not in need of hospitalization: Yes - Rehab Admission Criteria Previous failed treatment: Yes Poor recovery environment: Yes Comorbidities: Yes Lacks judgement: No Patient is meeting Inpatient Rehab admission criteria:: Yes
[2019-03-30] MEDS ORDERED: MENTHOL/PHENOL 1 EACH UD MM PRN (16:06)
[2019-03-30] MEDS ORDERED: LOPERAMIDE HCL 2 MG CAPSULE PO PRN (16:06)
[2019-03-30] MEDS ORDERED: P-EPHED 60MG/TRIPROLIDI 2.5MG TABLET PO PRN (16:06)
[2019-03-30] MEDS ORDERED: MAG HYDROX/AL HYDROX/SIMETH 30 ML UNIT-DOSE CUP PO PRN (16:06)
[2019-03-30] MEDS ORDERED: guaiFENesin 200 MG/10 ML 10 ML UNIT-DOSE CUPS PO PRN (16:06)
[2019-03-30] MEDS ORDERED: MAGNESIUM HYDROX 2400MG/30ML ORAL SUSPENSION 30 ML CUP PO PRN (16:06)
[2019-03-30] MEDS ORDERED: MAGNESIUM CITRATE 300 ML BOTTLE PO PRN (16:06)
[2019-03-30] MEDS ORDERED: IBUPROFEN 400 MG TABLET (FP) PO PRN (16:06)
[2019-03-30] MEDS ORDERED: ACETAMINOPHEN 325 MG TABLET (FP) PO PRN (16:06)
[2019-03-30] MEDS: CEPHALEXIN MONOHYDRATE 500 MG CAPSULE (UD) PO SCH (21:33)
[2019-03-30] MEDS: THIAMINE HCL 100 MG TABLET (FP) PO SCH (21:34)
[2019-03-30] MEDS: MELATONIN 5 MG TABLETS PO PRN (21:34)
[2019-03-31] MEDS: CEPHALEXIN MONOHYDRATE 500 MG CAPSULE (UD) PO SCH ×3 (06:16→21:28)
[2019-03-31] MEDS: AZITHROMYCIN 250 MG TABLET PO SCH (10:05)
[2019-03-31] MEDS: PRENATAL VITAMINS W/ FOLIC ACID TABLET (FP) PO SCH (10:07)
[2019-03-31] MEDS: MELATONIN 5 MG TABLETS PO PRN (21:28)
[2019-03-31] MEDS: THIAMINE HCL 100 MG TABLET (FP) PO SCH (21:28)
[2019-04-01] MEDS: CEPHALEXIN MONOHYDRATE 500 MG CAPSULE (UD) PO SCH ×2 (06:46→14:06)
[2019-04-01] MEDS: AZITHROMYCIN 250 MG TABLET PO SCH (10:26)
[2019-04-01] MEDS: PRENATAL VITAMINS W/ FOLIC ACID TABLET (FP) PO SCH (10:26)
[2019-04-01] MEDS ORDERED: ONDANSETRON 8 MG TABLET (FP) PO PRN (10:33)
--- NOTE | 2019-04-01 10:49 | PN ---
S Progress Note Note: Pt states he has nausea with each meal- started since he has been at [facility]. Says he would like a liquid diet to see if this helps with symptoms. Vital Signs - 24 hr 04/01/19 04/01/19 04/01/19 00:30 03:30 07:14 Temperature 97.7 F Pulse Rate 91 H Respiratory 18 18 18 Rate Blood Pressure 100/56 L PE- abd soft, NT a/p: n/v- will refer to dietitian to optimize meals and nutrition Zofran 1/2 hour before meals
[2019-04-01] MEDS: ONDANSETRON *ODT* 4 MG TABLET SL PRN (15:15)
[2019-04-01] MEDS: MELATONIN 5 MG TABLETS PO PRN (21:17)
[2019-04-01] MEDS: THIAMINE HCL 100 MG TABLET (FP) PO SCH (21:17)
[2019-04-02] MEDS: AZITHROMYCIN 250 MG TABLET PO SCH (09:44)
[2019-04-02] MEDS: PRENATAL VITAMINS W/ FOLIC ACID TABLET (FP) PO SCH (09:44)
[2019-04-02] MEDS: MELATONIN 5 MG TABLETS PO PRN (22:29)
[2019-04-02] MEDS: THIAMINE HCL 100 MG TABLET (FP) PO SCH (22:29)
[2019-04-03] MEDS: PRENATAL VITAMINS W/ FOLIC ACID TABLET (FP) PO SCH (09:53)
[2019-04-03] MEDS: THIAMINE HCL 100 MG TABLET (FP) PO SCH (21:26)
[2019-04-03] MEDS: MELATONIN 5 MG TABLETS PO PRN (21:27)
[2019-04-04] MEDS: PRENATAL VITAMINS W/ FOLIC ACID TABLET (FP) PO SCH (09:59)
[2019-04-04] MEDS: THIAMINE HCL 100 MG TABLET (FP) PO SCH (21:50)
[2019-04-04] MEDS: MELATONIN 5 MG TABLETS PO PRN (21:51)
[2019-04-05] MEDS: PRENATAL VITAMINS W/ FOLIC ACID TABLET (FP) PO SCH (10:20)
[2019-04-05] MEDS: ONDANSETRON *ODT* 4 MG TABLET SL PRN (14:20)
[2019-04-05] MEDS: THIAMINE HCL 100 MG TABLET (FP) PO SCH (21:32)
[2019-04-05] MEDS: MELATONIN 5 MG TABLETS PO PRN (21:32)
[2019-04-06] MEDS: PRENATAL VITAMINS W/ FOLIC ACID TABLET (FP) PO SCH (10:10)
[2019-04-06] MEDS: ONDANSETRON *ODT* 4 MG TABLET SL PRN (13:41)
[2019-04-06] MEDS: THIAMINE HCL 100 MG TABLET (FP) PO SCH (21:31)
[2019-04-06] MEDS: MELATONIN 5 MG TABLETS PO PRN (21:31)
[2019-04-06 22:00] VITALS: BMI 23.1
[2019-04-07 07:16] VITALS: BP 100/57; PULSE 74; TEMP 98.2
[2019-04-07] MEDS: PRENATAL VITAMINS W/ FOLIC ACID TABLET (FP) PO SCH (10:01)
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
== END 2019-04-07 12:20 | disposition home or self-care (01) | DRG 895 ==
LOC: YASAS 14:50 → Y5N 14:51
PROVIDERS: ADMIT Neuromusculoskeletal Medicine & OMM; ATTEND Neuromusculoskeletal Medicine & OMM
PROC: HZ42ZZZ Group Counseling for Substance Abuse Treatment, Cognitive-Behavioral (ICD-10-PCS; principal; 2019-03-30)
DX: F10.20 Alcohol dependence, uncomplicated (principal); F17.210 Nicotine dependence, cigarettes, uncomplicated; M25.561 Pain in right knee; M25.562 Pain in left knee; R11.2 Nausea with vomiting, unspecified; R26.2 Difficulty in walking, not elsewhere classified; Z99.89 Dependence on other enabling machines and devices; Z87.820 Personal history of traumatic brain injury
CPT/HCPCS: Q0162